=== PATIENT | female | born 1995 | race Caucasian/White ===

== ENCOUNTER 2021-05-06 08:33 | Emergency (ER) | payer OTHER ==
[~2021-05-06] VITALS: Ht 152.4 cm; Wt 62.6 kg
[2021-05-06] MEDS ORDERED: PEPCID AC20 MG PO (15:06)
[2021-05-06] MEDS ORDERED: INTESTINEX680 M1 PO (15:06)
== END 2021-05-06 15:11 ==
LOC: ER 08:33
DX: K52.89 Other specified noninfective gastroenteritis and colitis (principal); E86.0 Dehydration; Z91.013 Allergy to seafood

== ENCOUNTER 2022-08-14 11:04 | Emergency (ER) | payer OTHER ==
[~2022-08-14] VITALS: Ht 152.4 cm; Wt 67.1 kg
[~2022-08-14 11:04] MED LIST: INTESTINEX680 M1 PO; PEPCID AC20 MG PO
[2022-08-14] MEDS ORDERED: RISPERDAL0.5 MG (11:11)
[2022-08-14] MEDS ORDERED: ATIVAN0.5 M1 (11:11)
== END 2022-08-14 13:17 | disposition home or self-care (01) ==
LOC: ER 11:04
DX: R21 Rash and other nonspecific skin eruption (principal); Z91.013 Allergy to seafood

== ENCOUNTER 2022-09-09 05:32 | Emergency (ER) | payer OTHER ==
[~2022-09-09] VITALS: Ht 160 cm; Wt 68.0 kg
[~2022-09-09 05:32] MED LIST changes: +ATIVAN0.5 M1; +RISPERDAL0.5 MG
[2022-09-09] MEDS ORDERED: OSEL75CA PO (10:00)
== END 2022-09-09 10:06 | disposition home or self-care (01) ==
LOC: ER 05:32
DX: J10.1 Influenza due to other identified influenza virus with other respiratory manifestations (principal); B34.9 Viral infection, unspecified; Z88.8 Allergy status to other drugs, medicaments and biological substances; Z91.013 Allergy to seafood; Z20.822 Contact with and (suspected) exposure to COVID-19

== ENCOUNTER 2022-11-03 12:17 | Outpatient (CLI) | payer OTHER ==
[~2022-11-03 12:17] MED LIST changes: +OSEL75CA PO
== END 2022-11-03 12:30 | disposition home or self-care (01) ==
LOC: RAD 12:17
PROVIDERS: ATTEND General Practice
DX: M54.9 Dorsalgia, unspecified (principal)

== ENCOUNTER 2023-10-20 08:14 | Outpatient (CLI) | payer OTHER | END 2023-10-20 08:21 | disposition home or self-care (01) | LOC: SONOGRAMA 08:14 | PROVIDERS: ATTEND Internal Medicine | DX: E03.9 Hypothyroidism, unspecified (principal); I10 Essential (primary) hypertension; Z01.810 Encounter for preprocedural cardiovascular examination; E55.9 Vitamin D deficiency, unspecified; E11.51 Type 2 diabetes mellitus with diabetic peripheral angiopathy without gangrene; E11.9 Type 2 diabetes mellitus without complications; E66.8 Other obesity; N20.0 Calculus of kidney ==